=== PATIENT | male | born 1965 | race Caucasian/White ===

== ENCOUNTER 2016-10-19 07:17 | Emergency (ER) | payer OTHER ==
[2016-10-19 07:30] VITALS: BP 107/74
[2016-10-19] MEDS ORDERED: Ondansetron INJ* 2 MG/ML VIAL IV ONE (08:47)
[2016-10-19] MEDS ORDERED: NS 0.9% 1000 ML* 1,000 ML IV ONE (08:47)
[2016-10-19 09:07] LABS: Hematocrit 40 % (42-52); Hemoglobin 13.4 g/dl (14.0-18.0); Mean Corpuscular HGB Conc 34 g/dl (31-36); Mean Corpuscular Hemoglobin 28 pg (27-31); Mean Corpuscular Volume 83 fL (80-94); Mean Platelet Volume 9 um3 (7.4-10.4); Red Blood Count 4.81 10^6/ul (4.0-5.4); Red Cell Distribution Width 14 % (10.5-15); White Blood Count 5.2 10^3/ul (3.5-10.8)
--- NOTE | 2016-10-19 10:16 | RAD ---
INDICATION: Cough and flulike symptoms for a few days. Low-grade fever. Factor V Leiden deficiency. History of head and neck cancer. COMPARISON: June 08, 2016 PET/CT. TECHNIQUE: Dual energy PA and routine lateral views of the chest were obtained. REPORT: Clear lungs and pleural spaces. The heart, pulmonary vasculature, and mediastinal contours are unremarkable. Unremarkable osseous structures and soft tissue contours. IMPRESSION: 1. No evidence for pneumonia. 2. No focal pulmonary lesions or radiographic findings of lymphadenopathy.
[2016-10-19 10:22] LABS: Albumin 4.2 g/dL (3.2-5.2); BUN/Creatinine Ratio 17.2 (8-20); Calcium 9.3 mg/dL (8.6-10.3); EGFR African American 119.5 (>60); EGFR Non-African American 92.9 (>60); Globulin 2.1 g/dL (2-4); Potassium 4.3 mmol/L (3.5-5.0); Total Bilirubin 1.9 mg/dL (0.2-1.0); Total Protein 6.3 g/dL (6.4-8.9)
--- NOTE | 2016-10-19 15:21 | ED ---
I, Oh,Jorge, scribed for Ming Pritchard MD on 10/19/16 at 0847 . Influenza-Like Illness - HPI Summary HPI Summary: This 51 y/o male presents to ED via private vehicle for flu-like symptoms since 4 days ago. Pt also reports productive cough, n/v x1 yesterday, general myalgia , general weakness, dizziness, and low grade fever of 99.9 F at home. Pt currently has feeding tube in place, but reports that pt has not eaten yesterday. He denies any SOB, CP, abd pain, or dysuria. He is not UTD with flu shot this year. PMHx includes throat CA s/p radiology tx on 08/25/2016. He was seen by radiologist oncologist 3 days ago. No chemo or surgery except for feeding tube placement. PSHx includes hernia surgery. Primary care involves Dr. Prado. Pt is nonsmoker, nondrinker. Pt denies any possible sick contact. - History of Current Complaint Chief Complaint: EDFluSymptoms Time Seen by Provider: 10/19/16 07:55 Hx Obtained From: Patient, Family/Epic Ambulatory Analysts - present at bedside Onset/Duration: Gradual Onset, Still Present Associated Signs & Symptoms: Fever, T Max - 99.9 F, Cough, Sore Throat, Vomiting - Allergy/Home Medications Allergies/Adverse Reactions: Allergies Allergy/AdvReac Type Severity Reaction Status Date / Time No Known Allergies Allergy Verified 10/19/16 07:21 PMH/Surg Hx/FS Hx/Imm Hx Endocrine/Hematology History: Denies: Hx Diabetes Cardiovascular History: Reports: Other Cardiovascular Problems/Disorders - FACTOR V LIEDEN, HX OF SUPERFICIAL BLOOD CLOTS IN LEGS, PRIMARILY RIGHT- Denies: Hx Hypertension, Hx Pacemaker/ICD Respiratory History: Reports: Hx Sleep Apnea History: Reports: Hx Kidney Stones - LEFT Denies: Hx Renal Disease Musculoskeletal History: Reports: Hx Arthritis - BILATERAL SHOULDERS, Hx Tendonitis - RIGHT HAND, Other Musculoskeletal History - DDD Sensory History: Reports: Hx Contacts or Glasses - READING GLASSES Denies: Hx Hearing Aid Opthamlomology History: Reports: Hx Contacts or Glasses - READING GLASSES Neurological History: Reports: Hx Nerve Disease, Other Neuro Impairments/ Disorders - NEUROPATHY BILAT FEET Psychiatric History: Denies: Hx Panic Disorder - Cancer History Cancer Type, Location and Year: MALIGNANT NEOPLASM TONSIL - Surgical History Surgery Procedure, Year, and Place: TONSILLECTOMY A CHILD. APPENDECTOMY A CHILD. 2011 ABDOMINAL HERNIA REPAIR WITH MESH, [facility]. 2012 ESWL LEFT KIDNEY STONE, [place]. 10/2015 RIGHT KNEE ARTHROSCOPY WITH PARTIAL MEDIAL MENISECTOMY AND PLICA EXCISION, [place] Hx Anesthesia Reactions: Yes - 2012-AGITATED WITH EXTUBATION - Immunization History Date of Tetanus Vaccine: Unknown Date of Influenza Vaccine: never Infectious Disease History: No Infectious Disease History: Denies: Traveled Outside the [place] in Last 30 Days - Family History Known Family History: Positive: Other - Cancer - Social History Alcohol Use: Occasionally Hx Substance Use: No Substance Use Type: Reports: None Hx Tobacco Use: Yes Smoking Status (MU): Former Smoker Type: Cigarettes Amount Used/How Often: 1-2 PPD, ON AND OFF FOR ABOUT 20 YEARS Length of Time of Smoking/Using Tobacco: 20 YEARS Have You Smoked in the Last Year: No Review of Systems Negative: Fever Negative: Erythema Positive: Sore Throat Negative: Chest Pain Positive: Cough. Negative: Shortness Of Breath Positive: Vomiting, Nausea. Negative: Abdominal Pain, Diarrhea Negative: dysuria, hematuria Positive: Myalgia - general Neurological: Other - positive for dizziness Positive: Weakness - general Negative: Anxious, Depressed All Other Systems Reviewed And Are Negative: Yes Physical Exam - Summary Physical Exam Summary: Constitutional: Well-developed, Well-nourished, Alert. (-) Distressed Skin: Warm, Dry HENT: Normocephalic; Atraumatic, External ear canal patent. TM normal. Left tonsil red and discolored Eyes: Conjunctiva normal Neck: Musculoskeletal ROM normal neck. (-) JVD, (-) Stridor, (-) Tracheal deviation Cardio: Rhythm regular, rate normal, Heart sounds normal; Intact distal pulses; The pedal pulses are 2+ and symmetric. Radial pulses are 2+ and symmetric. (-) Murmur Pulmonary/Chest wall: Effort normal. (-) Respiratory distress, (-) Wheezes, (-) Rales Abd: Soft, (-) Tenderness, (-) Distension, (-) Guarding, (-) Rebound Musculoskeletal: (-) Edema Lymph: (-) Cervical adenopathy Neuro: Alert, Oriented x3 Psych: Mood and affect Normal Triage Information Reviewed: Yes Vital Signs On Initial Exam: Initial Vitals Temp Pulse Resp BP Pulse Ox 97.9 F 97 16 107/74 99 10/19/16 07:21 10/19/16 07:21 10/19/16 07:21 10/19/16 07:21 10/19/16 07:21 Vital Signs Reviewed: Yes Diagnostics - Vital Signs Vital Signs Temp Pulse Resp BP Pulse Ox 10/19/16 07:21 97.9 F 97 16 107/74 99 - Laboratory Result Diagrams: 10/19/16 09:00 10/19/16 09:00 Lab Statement: Any lab studies that have been ordered have been reviewed, and results considered in the medical decision making process. - Radiology CXR Xray Interpretation: No Acute Changes Radiology Interpretation Completed By: Radiologist Re-Evaluation - Re-Evaluation First Eval Re-Evaluation Time: 10:55 Comment: MD in room to update pt on lab results and plan of care. Pt is agreeable to being discharged and outpatient f/u with Dr. Prado. Flu Symptom Course/Dx - Course Assessment/Plan: This 51 y/o male presents to ED for flu-like symptoms with productive cough, low grade fever, and sore throat for 4 days. PMHx is significant for throat CA s/p radiation tx in August 2016. Blood work indicates midly elevated total bilirubin of 1.90. At this point, acute biliary obstruction or surgical abdomen are not suspected with pt's clinical presentation today. Rapid strep and flu swap are indicated negative. Pt will be sent home with outpatient f/u with Dr. Prado. - Diagnoses Provider Diagnoses: Viral illness, Jaundice Discharge - Discharge Plan Condition: Stable Disposition: HOME Prescriptions: Ondansetron ODT TAB* [Zofran Odt TAB*] 4 mg PO Q8H PRN #12 tab.odt PRN Reason: Nausea/Vomiting Patient Education Materials: Ondansetron (By mouth), Viral Syndrome (ED), Jaundice (ED) Referrals: David Daily MD [Primary Care Provider] - 2 Days Juan Manuel Prado MD [Medical Doctor] - 2 Days The documentation as recorded by the Low kemp Soohyun accurately reflects the service I personally performed and the decisions made by , Ming Pritchard MD.
== END 2016-10-19 11:12 | disposition home or self-care (01) ==
LOC: ED 07:17
DX: B34.9 Viral infection, unspecified (principal); R17 Unspecified jaundice; G62.9 Polyneuropathy, unspecified; Z87.891 Personal history of nicotine dependence
CPT/HCPCS: 36415; 71020; 80053; 85027; 87502; 87651; 96360; 96365; 96374; 99282; J2405

== ENCOUNTER 2018-05-25 08:14 | Observation (INO) | payer OTHER ==
[2018-05-25] MEDS ORDERED: Ondansetron INJ* 2 MG/ML VIAL IV ONE (08:29)
[2018-05-25] MEDS ORDERED: Morphine VIAL* 4 MG/ML VIAL (1 ml vial) IV ONE ×2 (08:29→11:39)
--- NOTE | 2018-05-25 08:37 | ED ---
Neck Pain - HPI Summary HPI Summary: This patient is a 52 year old M presenting to [facility] accompanied by his with a chief complaint of progressively worsening 9/10 diffuse neck pain since . He endorses left hand paresthesia, numbness, and weakness. He notes pain radiation to front of head and eyes. He denies PMHx neck problems. He denies injury and chest pain. Rx allopurinol for PMHx gout. Rx gabapentin PRN for PMHx neuropathy of feet. PMHx throat cancer, + factor 5. - History of Current Complaint Chief Complaint: EDNeckComplaint Stated Complaint: NECK/BACK PAIN Time Seen by Provider: 05/25/18 08:22 Hx Obtained From: Patient Onset/Duration Of Injury/Symptoms: Days Mechanism Of Injury: No Known Trauma Timing: Constant Onset/Duration: Gradual Onset, Started days ago, Still Present, Worse Since - gradually Severity Initially: Moderate Severity Currently: Severe Pain Intensity: 9 Pain Scale Used: 0-10 Numeric Location: Diffuse, Radiates To: - head and eyes Aggravating Factors: Movement Alleviating Factors: Nothing Associated Signs & Symptoms: Positive: Weakness - left arm, Headache, Paresthesia. Negative: Fever Related History: Other - throat CA - Allergies/Home Medications Allergies/Adverse Reactions: Allergies Allergy/AdvReac Type Severity Reaction Status Date / Time No Known Allergies Allergy Verified 05/25/18 09:16 Home Medications: Home Medications Levothyroxine Sodium 75 mcg PO DAILY 05/25/18 [History Confirmed 05/25/18] PMH/Surg Hx/FS Hx/Imm Hx Endocrine/Hematology History: Reports: Hx Blood Disorders - + factor V Denies: Hx Diabetes Cardiovascular History: Reports: Other Cardiovascular Problems/Disorders - FACTOR V LIEDEN, HX OF SUPERFICIAL BLOOD CLOTS IN LEGS, PRIMARILY RIGHT- Denies: Hx Hypertension, Hx Pacemaker/ICD Respiratory History: Reports: Hx Sleep Apnea History: Reports: Hx Kidney Stones - LEFT Denies: Hx Renal Disease Musculoskeletal History: Reports: Hx Arthritis - BILATERAL SHOULDERS, Hx Tendonitis - RIGHT HAND, Other Musculoskeletal History - DDD Sensory History: Reports: Hx Contacts or Glasses - READING GLASSES Denies: Hx Deafness, Hx Hearing Aid Opthamlomology History: Reports: Hx Contacts or Glasses - READING GLASSES EENT History: Denies: Hx Deafness Neurological History: Reports: Hx Nerve Disease, Other Neuro Impairments/ Disorders - NEUROPATHY BILAT FEET Psychiatric History: Denies: Hx Panic Disorder, Hx Schizophrenia - Cancer History Cancer Type, Location and Year: MALIGNANT NEOPLASM TONSIL - Surgical History Surgery Procedure, Year, and Place: TONSILLECTOMY A CHILD. APPENDECTOMY A CHILD. 2011 ABDOMINAL HERNIA REPAIR WITH MESH, [facility]. 2012 ESWL LEFT KIDNEY STONE, [facility]. 10/2015 RIGHT KNEE ARTHROSCOPY WITH PARTIAL MEDIAL MENISECTOMY AND PLICA EXCISION, [facility] Hx Anesthesia Reactions: Yes - 2012-AGITATED WITH EXTUBATION - Immunization History Date of Tetanus Vaccine: Unknown Date of Influenza Vaccine: never Infectious Disease History: No Infectious Disease History: Denies: Traveled Outside the [place] in Last 30 Days - Family History Known Family History: Positive: Other - Cancer - Social History Occupation: Employed Full-time Lives: With Family Alcohol Use: Occasionally Hx Substance Use: No Substance Use Type: Reports: None Hx Tobacco Use: Yes Smoking Status (MU): Former Smoker Type: Cigarettes Amount Used/How Often: 1-2 PPD, ON AND OFF FOR ABOUT 20 YEARS Length of Time of Smoking/Using Tobacco: 20 YEARS Have You Smoked in the Last Year: No Review of Systems Negative: Fever Negative: Chest Pain Positive: no symptoms reported Positive: Arthralgia - neck, Myalgia - neck, Decreased ROM Positive: Headache - radiated from neck, to eyes and head, Weakness - left arm/ hand, Paresthesia - left arm/hand, Numbness - left arm/hand All Other Systems Reviewed And Are Negative: Yes Physical Exam - Summary Physical Exam Summary: General: well-appearing, moderate pain distress Skin: warm, color reflects adequate perfusion, dry Head: normal Eyes: EOMI, LEX ENT: normal Neck: supple, nontender Respiratory: CTA, breath sounds present Cardiovascular: RRR, good pulses Abdomen: soft, nontender Bowel: present Musculoskeletal: Tender in dorsal neck, pain worse with left arm movement. Good strength bilaterally. Neurological: sensory/motor intact, A&O x3 Psychological: affect/mood appropriate Triage Information Reviewed: Yes Vital Signs On Initial Exam: Initial Vitals Temp Pulse Resp BP Pulse Ox 97.8 F 64 18 139/93 99 05/25/18 08:17 05/25/18 08:17 05/25/18 08:17 05/25/18 08:17 05/25/18 08:17 Vital Signs Reviewed: Yes Diagnostics - Vital Signs Vital Signs Temp Pulse Resp BP Pulse Ox 08/23/18 08:17 97.8 F 64 18 139/93 99 - Laboratory Result Diagrams: 05/25/18 09:19 05/25/18 09:19 Lab Statement: Any lab studies that have been ordered have been reviewed, and results considered in the medical decision making process. - CT Brain CT Interpretation: No Acute Changes CT Interpretation Completed By: Radiologist - Negative non-contrast examination. Dr. Lazaro has reviewed this report. C-Spine CT Interpretation: No Acute Changes CT Interpretation Completed By: Radiologist - Mild DDD, otherwise unremarkabel CT of C-spine. Dr. Lazaro has reviewed this report. CTA head CT Interpretation: Positive (See Comments) CT Interpretation Completed By: Radiologist - 1. RIGHT VERTEBRAL ARTERY DISSECTION. THIS RESULTS IN OCCLUSION OF THE V1 SEGMENT OF NARROWING OF THE V2 SEGMENT WITHOUT APPRECIABLE PSEUDOANEURYSM. 2. NO INTERNAL CAROTID ARTERY STENOSIS BY NASCET CRITERIA. 3. NO ANEURYSM, VASCULAR MALFORMATION, OCCLUSION, OR STENOSIS OF THE VISUALIZED INTRACRANIAL CIRCULATION. Dr. Lazaro has reviewed this report. Neck Course/Dx - Course Course Of Treatment: right sided. Dr Salvador, neurology, saw the patient in the ED. Admit Hospitalist. - Diagnoses Provider Diagnoses: Dissection, vertebral artery - Physician Notifications Discussed Care Of Patient With: Marlon Salvador Time Discussed With Above Provider: 11:17 Instructed by Provider To: Other - Will see pt in ED. Discharge - Sign-Out/Discharge Documenting (check all that apply): Patient Departure - admit - Discharge Plan Condition: Stable Disposition: ADMITTED TO [facility] - Billing Disposition and Condition Condition: STABLE Disposition: Admitted to [facility] - Attestation Statements Document Initiated by Hemanthibnoel: Yes Documenting Scribe: Jose Kumar Provider For Whom Raúl is Documenting (Include Credential): Dr. Brandon Lazaro MD Scribe Attestation: Jose Park scribed for Dr. Brandon Lazaro MD on 05/25/18 at 1521. Scribe Documentation Reviewed: Yes Provider Attestation: The documentation as recorded by the Jose kemp accurately reflects the service I personally performed and the decisions made by me, Dr. Brandon Lazaro MD Consult Consult: 1212 Dr. Salvador: recommends 325 ASA, no blood thinners necessary. Recommends controlling the pain, and gabapentin for nerve pain. Recommends admitting to the hospitalist. 1214 Dr. Swartz: Accepts admission
[2018-05-25] MEDS ORDERED: Morphine INJ* 2 MG/ML 1 ML SYRINGE (TWO MG - NEW SYRINGE VERSION) ONE (09:09)
[2018-05-25] MEDS ORDERED: NS 0.9% 1000 ML*IV.FLUID IV ONE (09:11)
[2018-05-25 09:33] LABS: ABS Basophils 0.1 10^3/ul (0-0.2); ABS Eosinophils 0.1 10^3/ul (0-0.6); ABS Lymphocytes 0.5 10^3/ul (1.0-4.8); ABS Monocytes 0.4 10^3/ul (0-0.8); ABS Neutrophils 5.6 10^3/ul (1.5-7.7); ABS Nucleated RBC 0 10^3/ul; Eosinophil % 1.4 % (0-6); Hematocrit 42 % (42-52); Hemoglobin 14.6 g/dl (14.0-18.0); Lymphocyte % 7.3 % (25-47); Mean Corpuscular HGB Conc 35 g/dl (31-36); Mean Corpuscular Hemoglobin 30 pg (27-31); Mean Corpuscular Volume 85 fL (80-94); Nucleated Red Blood Cells % 0.1; Platelet Count 124 10^3/ul (150-450); Red Blood Count 4.86 10^6/ul (4.00-5.40); Red Cell Distribution Width 14 % (10.5-15); White Blood Count 6.6 10^3/ul (3.5-10.8)
[2018-05-25 09:43] LABS: INR 0.96 (0.77-1.02)
[2018-05-25 09:54] LABS: EGFR Non-African American 99.1 (>60)
[2018-05-25] MEDS ORDERED: Iohexol 350* (CONTRAST) 500 ML MDV IV ONE (09:59)
--- NOTE | 2018-05-25 10:40 | RAD ---
INDICATION: Headaches. Tonsillar carcinoma COMPARISON: None TECHNIQUE: Noncontrast axial source images were acquired from the skull base to the vertex. FINDINGS: Ventricles/sulci: The ventricles and cisterns are normal in size and configuration for age. Brain parenchyma: There is no focal parenchymal finding, evidence of intracranial mass, or intracranial mass effect. Intracranial hemorrhage:None. Extra-axial spaces: There are no abnormal extra axial fluid collections or evidence of extra-axial mass. Calvarium: There is no calvarial fracture or other calvarial abnormality. Scalp: There is no evidence of scalp or extracalvarial soft tissue abnormality. Paranasal sinuses/mastoid: The paranasal sinuses and mastoid air cells are clear. Other: None. IMPRESSION: NEGATIVE NONCONTRAST EXAMINATION
--- NOTE | 2018-05-25 10:43 | RAD ---
HISTORY: neck pain,left arm pain,rt head pain COMPARISONS: None TECHNIQUE: Multiple contiguous axial CT scans were obtained of the cervical spine without intravenous contrast, with coronal and sagittal multiplanar reformations. FINDINGS: BRAIN: The visualized brain is unremarkable CENTRAL CANAL: Evaluation of the central canal is limited on CT technique; however, there is no obvious canalicular mass or epidural hemorrhage. ALIGNMENT: The alignment is normal, without subluxation or dislocation. VERTEBRAL BODIES: The odontoid process is intact. The atlantoaxial intervals are symmetric. The vertebral bodies are normal in attenuation, without fracture. JOINTS: There is no subluxation or dislocation. MUSCULATURE: Unremarkable INTERVERTEBRAL DISCS: There is mild diffuse loss of intervertebral disc height. AXIAL IMAGES: C2-C3: There is no osseous neural foraminal narrowing or central canal stenosis. C3-C4: There is no osseous neural foraminal narrowing or central canal stenosis. C4-C5: There is no osseous neural foraminal narrowing or central canal stenosis. C5-C6: There is no osseous neural foraminal narrowing or central canal stenosis. C6-C7: There is no osseous neural foraminal narrowing or central canal stenosis. C7-T1: There is no osseous neural foraminal narrowing or central canal stenosis. SOFT TISSUES: The visualized soft tissues of the neck are unremarkable. The prevertebral fat stripe is preserved. OTHER: None. IMPRESSION: MILD DEGENERATIVE DISC DISEASE. OTHERWISE UNREMARKABLE CT OF THE CERVICAL SPINE.
--- NOTE | 2018-05-25 10:48 | RAD ---
HISTORY: rt GRAYSON/NECK PAIN/lt arm pain,factor 5 positive COMPARISONS: None TECHNIQUE: Multiple contiguous axial CT scans were obtained of the head and neck after the administration of nonionic intravenous contrast timed to the systemic arterial phase of contrast enhancement. Coronal and sagittal multiplanar reformations are submitted for review. Multiple 3-D maximum intensity projection reconstructions are also submitted for review. FINDINGS: CTA NECK: AORTIC ARCH: There is a normal three-vessel branching pattern of the aortic arch. There is no ostial or proximal stenosis of the cephalic great vessels. RIGHT VERTEBRAL ARTERY: There is lack of contrast opacification of the V1 segment of the right vertebral artery with fusiform narrowing of the V2 segment with reconstitution distally. LEFT VERTEBRAL ARTERY: The left vertebral artery is patent along its course, without stenosis. DOMINANCE: The left vertebral artery is dominant. RIGHT COMMON CAROTID ARTERY: The right common carotid artery is patent. The right carotid bifurcation occurs at C3-C4 RIGHT INTERNAL CAROTID ARTERY: There is no right internal carotid artery stenosis by NASCET criteria. Right internal carotid artery is tortuous. RIGHT EXTERNAL CAROTID ARTERY: The right external carotid artery is unremarkable. LEFT COMMON CAROTID ARTERY: The left common carotid artery is patent. The left carotid bifurcation occurs at C4-C5 LEFT INTERNAL CAROTID ARTERY: There is no left internal carotid artery stenosis by NASCET criteria. LEFT EXTERNAL CAROTID ARTERY: The left external carotid artery is unremarkable. VENOUS CIRCULATION: The venous system is unremarkable. SALIVARY GLANDS: The parotid glands, submandibular glands, sublingual glands are normal. NASAL CAVITY/NASOPHARYNX: The nasal cavity and nasopharynx are normal. ORAL CAVITY/OROPHARYNX: The oral cavity is obscured by streak artifact from dental amalgam. The visualized oral cavity and oropharynx are unremarkable. LARYNGEAL APPARATUS/HYPOPHARYNX: The laryngeal apparatus and hypopharynx are normal. UPPER AIRWAY/UPPER ESOPHAGUS: The visualized upper airway and esophagus are normal. LUNG APICES: The lung apices are clear. THYROID GLAND: The thyroid gland is small. LYMPH NODES: There is no lymphadenopathy by size criteria. BONES AND SOFT TISSUES: No bone or soft tissue abnormalities are noted. CTA HEAD: INTRACRANIAL CIRCULATION: There is no aneurysm, vascular malformation, occlusion, or stenosis of the visualized intracranial circulation. The anterior communicating artery complex is clear. Bilateral posterior communicating arteries are identified. VENOUS CIRCULATION: The venous system is unremarkable. PERFUSION: There is no obvious parenchymal perfusion deficit. HEMORRHAGE/INFARCT: There is no hemorrhage or acute infarct. MASSES/SHIFT: There is no mass or shift. EXTRA-AXIAL SPACES: There are no extra-axial fluid collections. SULCI AND VENTRICLES: The sulci and ventricles are normal in size and position for the patient's stated age. CEREBRUM: There are no focal parenchymal abnormalities. BRAINSTEM: There are no focal parenchymal abnormalities. CEREBELLUM: There are no focal parenchymal abnormalities. PARANASAL SINUSES: There is a mucous retention cyst of the right maxillary sinus. ORBITS: The orbits are unremarkable. BONES AND SOFT TISSUE: No bone or soft tissue abnormalities are noted. OTHER: There is no abnormal enhancement. IMPRESSION: 1. RIGHT VERTEBRAL ARTERY DISSECTION. THIS RESULTS IN OCCLUSION OF THE V1 SEGMENT OF NARROWING OF THE V2 SEGMENT WITHOUT APPRECIABLE PSEUDOANEURYSM. 2. NO INTERNAL CAROTID ARTERY STENOSIS BY NASCET CRITERIA. 3. NO ANEURYSM, VASCULAR MALFORMATION, OCCLUSION, OR STENOSIS OF THE VISUALIZED INTRACRANIAL CIRCULATION. PRELIMINARY FINDINGS WERE DISCUSSED WITH DR. OSORIO AT APPROXIMATELY 10:44 AM ON MAY 25, 2018. . CPT II Codes: 3100F
[2018-05-25] MEDS ORDERED: Morphine INJ* 2 MG/ML 1 ML SYRINGE (TWO MG - NEW SYRINGE VERSION) IV ONE (11:42)
[2018-05-25] MEDS ORDERED: oxyCODONE/Acetamin 5/325 MG* TAB PO PRN (12:53)
[2018-05-25] MEDS ORDERED: Ondansetron INJ* 2 MG/ML VIAL IV PRN (12:54)
[2018-05-25] MEDS ORDERED: Aspirin 81 mg CHEW TAB* 81 MG TAB.CHEW ONE ×2 (12:54→12:56)
[2018-05-25] MEDS ORDERED: Enoxaparin(*) 40 MG/0.4 ML SYR SUBCUT SCH (13:00)
[2018-05-25] MEDS ORDERED: Aspirin 81 mg CHEW TAB* 81 MG TAB.CHEW PO SCH ×2 (13:00→13:11)
[2018-05-25] MEDS: NS 0.9% w/ 20 Meq KCL 1000 ML* 1,000 ML IV SCH ×2 (15:15→22:02)
--- NOTE | 2018-05-25 15:22 | RAD ---
HISTORY: Evaluate for right thalamic or pontine infarction COMPARISONS: Head CT dated May 25, 2018, CT dated May 25, 2018 TECHNIQUE: The following sequences were obtained of the head: Sagittal T1-weighted images, axial T2-weighted images, axial FLAIR images, axial susceptibility weighted images, axial T1-weighted images. Additionally, axial diffusion-weighted images were obtained with calculated apparent diffusion coefficients. FINDINGS: HEMORRHAGE/INFARCT: There is no hemorrhage or acute infarct. MASSES/SHIFT: There is no mass or shift. EXTRA-AXIAL SPACES/MENINGES: There are no extra-axial fluid collections. SULCI AND VENTRICLES: The sulci and ventricles are normal in size and position for the patient's stated age. CEREBRUM: There are no focal parenchymal abnormalities. BRAINSTEM: There are no focal parenchymal abnormalities. CEREBELLUM: There are no focal parenchymal abnormalities. The cerebellar tonsils are normal in size and position. SELLA: The sella is normal. PINEAL: The pineal region is clear. CP ANGLE/TEMPORAL BONES: The labyrinthine structures are grossly normal. VESSELS: Normal flow-voids are noted within the visualized vertebral vasculature. DIFFUSION ABNORMALITIES: There are no diffusion abnormalities. PARANASAL SINUSES/MASTOIDS: There is a mucous retention cyst of the right maxillary sinus. ORBITS: The orbits are unremarkable. BONES AND SOFT TISSUE: No bone or soft tissue abnormalities are noted. OTHER: None IMPRESSION: NORMAL BRAIN. THERE IS NO RESTRICTED DIFFUSION TO SUGGEST ACUTE INFARCT.
[2018-05-25] MEDS: Morphine INJ* 2 MG/ML 1 ML SYRINGE (TWO MG - NEW SYRINGE VERSION) IV PRN ×2 (17:00→23:41)
--- NOTE | 2018-05-25 17:21 | HP ---
CC: Dr. Brandy Elizalde * HISTORY AND PHYSICAL: DATE OF ADMISSION: 05/25/18. PRIMARY CARE PROVIDER: Dr. Brandy Elizalde. CHIEF COMPLAINT: Pain in neck. HISTORY OF PRESENT ILLNESS: Mr. Torres is a 52-year-old male, who has a history of throat cancer diagnosed approximately 2 years ago, status post radiation therapy, recurrent kidney stones, gout, hypothyroidism, and lower extremity neuropathy who presents to the emergency room with complaints of sudden onset of severe right- sided neck pain. The patient states that this past Tuesday evening, he golfed like he typically does. He had no issues that evening. On the very mop maker of Tuesday, approximately 4 a.m., he was awakened from sleep with severe left shoulder blade pain. The patient's was awakened by her calling out for help. She got him situated in a recliner and placed a TENS unit on his shoulder blade. Ultimately, he was able to be settled down and sleep the rest of the night. He states that this morning at approximately 7 :30 a.m., he developed sudden onset of very severe right posterior neck pain. He states the pain radiates up across the entire head down over the forehead into the eye. He describes this is very painful. He initially told the neurologist that he had some double vision, but denied this to me. He does state when he develops the severe pain in his neck this morning, he also developed some numbness and tingling in the left hand. He states there is still mild amount of numbness and tingling there now. He does admit to lifting a 30 foot ladder into the back of a truck this morning. He does admit to mild headache with this. He felt as if his right arm felt heavy. After reviewing with the neurologist economics professor today, it seems as though the patient gave both myself and the neurologist a little bit of a different story. The patient's had another variation. PAST MEDICAL HISTORY: 1. History of throat cancer, status post radiation therapy. 2. Neuropathy of the bilateral feet. 3. Recurrent kidney stones. 4. Gout. 5. Hypothyroidism. 6. Heterozygous for factor V Leiden deficiency. PAST SURGICAL HISTORY: 1. Appendectomy. 2. Tonsillectomy. 3. Right knee arthroscopic surgery. 4. Lithotripsy. 5. PEG tube placement. 6. Hernia repair. MEDICATIONS: 1. Levothyroxine 75 mcg p.o. daily. 2. Gabapentin 300 mg p.o. t.i.d. p.r.n. pain (the patient only takes 300 mg once a day). 3. Allopurinol 300 mg p.o. q.h.s. ALLERGIES: No known drug allergies. FAMILY HISTORY: Mom in her 60s of brain cancer. Dad is living, he is 81, he has a history of DVT and dementia. SOCIAL HISTORY: The patient is a former smoker, he quit approximately 10 years ago. He smoked 1 to 2 packs a day for approximately 5 years. He used chewing tobacco following that, but does not use this any longer. He admits to drinking several alcoholic beverages per week and averages likely 18 beers weekly. 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 He is . He has no children. He indicates that his , Beverly is his healthcare proxy. REVIEW OF SYSTEMS: A complete 11-system review of systems was obtained. Pertinent positives and negatives are as per HPI and otherwise negative. PHYSICAL EXAMINATION GENERAL: The patient is a well-developed, middle-aged male seen lying in the stretcher, in no acute distress. VITAL SIGNS: Blood pressure 133/78, pulse 68, respirations 22, temp 97.8, O2 sat 97% on room air. HEENT: Pupils are equal and round. Extraocular muscles are intact. Oropharynx is clear. Oral mucosa is moist. NECK: There is no submandibular, cervical, or supraclavicular adenopathy. Thyroid is not enlarged. No thyroid nodules are noted. PULMONARY: Lungs are clear to auscultation bilaterally. CARDIAC: Normal S1, S2. Regular rate and rhythm. I do not appreciate any murmurs. There is no lower extremity edema. ABDOMEN: Bowel sounds present. Abdomen is soft, nontender, and nondistended. MUSCULOSKELETAL: There is no cyanosis or clubbing of the digits. There is full active range of motion of all 4 extremities. NEURO: Cranial nerves II through XII are grossly intact. Sensation is intact to light touch throughout. Strength is 5/5 and symmetric in both upper and lower extremities bilaterally. PSYCH: The patient is alert. He is oriented x3. Affect appears appropriate. SKIN: Warm and dry. There are no rashes. DIAGNOSTIC STUDIES/LAB DATA: WBC 6.6, hemoglobin 14.6, hematocrit 42, platelets 124. INR 0.96. Sodium 139, potassium 4.5, chloride 108, CO2 of 24, BUN 10, creatinine 0.82, glucose 99, calcium 8.9. Bilirubin 0.6, AST 14, ALT 12 , alk phos 54. Albumin 3.8. Triglyceride level 341. Total cholesterol 163. LDL 62, HDL 33, vitamin B12 333. CT of the brain negative, non-contrast examination. CT of the cervical spine, mild degenerative disk disease otherwise unremarkable CT of the cervical spine. CTA of the head reveals right vertebral artery dissection. This results in occlusion of the V1 segment and narrowing of the V2 segment without appreciable pseudoaneurysm. There is no internal carotid artery stenosis. No aneurysm, vascular malformation, occlusion or stenosis of the visualized intracranial circulation. ASSESSMENT AND PLAN: Mr. Torres is a 52-year-old male with a history of throat cancer, status post radiation therapy, hypothyroidism, and gout, who presents to the emergency room with complaints of sudden onset of severe neck. He is identified to have a right vertebral artery dissection. 1. Right vertebral artery dissection. At this point, it does not clear why this developed, however, the patient did receive radiation therapy to the neck. Perhaps there was some damage done to the vertebral artery related to this. The patient did golf this past Tuesday and lifted a heavy object on the morning of admission. At this point, management for the vertebral artery dissection is going to be with aspirin 325 mg daily. The patient did develop numbness and tingling of the left hand, which is still present at this time. Because of this there is a concern that the patient may have had a small stroke. An MRI of the brain has been ordered. The patient has been seen in consultation by Dr. Salvador, who will continue to follow along. Dr. Salvador did speak with neurovascular surgeon at [facility] and it was not felt that he required transfer at this time. The patient will have neuro checks overnight. 2. Hypothyroidism. The patient will continue on his usual dose of Synthroid. 3. Gout. We will continue allopurinol. 4. Lower extremity neuropathy. This is likely a secondary to the patient's alcohol use. It seems as though he drinks approximately 18 beers per week, but perhaps more. The patient will continue on gabapentin, though this will be changed to 300 mg twice daily. 5. DVT prophylaxis: According to the Adult Thrombosis Prophylaxis Risk Factor Assessment Guide, the patient has a total risk factor score of 5 making him high risk. Lovenox 40 mg subcutaneous daily will be utilized as DVT prophylaxis. 6. Code status is full. TIME SPENT: Sixty-five minutes were spent admitting this patient. [id number]/CPS #: [id number] MTDD
[2018-05-25] MEDS: Gabapentin CAP(*) 300 MG PO SCH (20:28)
[2018-05-25] MEDS ORDERED: Allopurinol TAB* 300 MG PO SCH (21:00)
--- NOTE | 2018-05-25 21:02 | CONS ---
NEUROLOGY CONSULTATION NOTE: DATE OF SERVICE: 05/25/18 REASON FOR CONSULT: Neurology was consulted to evaluate for abnormal CTA. CHIEF COMPLAINT: Back and neck pain as well as transient double vision and left - handed numbness. HISTORY OF PRESENT ILLNESS: Mr. Brandon Torres is a 52-year-old right-handed man with history of throat cancer, status post radiation therapy, 6 weeks of 6- treatments, total of 36-treatments that ended on 08/25/16 who presented with sudden onset of right-sided neck pain. The patient reported some shoulder pain Tuesday, eventually progressed to pain in the low back, shoulder, as well as the neck. This morning, the patient had a transient symptom of binocular vertical diplopia that lasted for approximately 45 minutes followed by tingling sensation of the left arm, mostly involving the left hand that also lasted for about 1 hour. In regards to the neck pain, the patient describes a dull-like sensation that is graded as 8/10 in the neck region. It is again sudden onset that woke him up on Tuesday at 4 a.m. The patient is aspirin naive. He has no history of stroke or seizures.The patient presented to the ED and had a CT head that showed no acute intracranial abnormalities. I personally reviewed the study. The patient then had a CTA head and neck that showed a right vertebral artery dissection with occlusion of the V1 segment and severely stenosis of the V2 segment. The patient stated that he played golf Tuesday afternoon. He also reported lifting a heavy object this morning. The patient is aspirin naive. He has no history of stroke or seizures. The patient complains of chronic numbness and burning sensation in the distal lower extremity. He does have history of alcohol use and averages 12 to 18 packs of 12- ounce beer a week since he was 16 to 17 years of age. The patient did not have any motor vehicle accident, trauma to the neck, or any recent chiropractic manipulation. PAST MEDICAL HISTORY: Hypothyroidism, factor V Leiden gene mutation heterozygous, superficial thrombophlebitis mostly involving the lower extremity , gout, kidney stones. PAST SURGICAL HISTORY: No known surgical history. 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 MEDICATIONS: 1. Gabapentin. 2. Synthroid. 3. Allopurinol. ALLERGIES: No known drug allergies. FAMILY HISTORY: Father has factor V with recurrent DVTs and PEs. 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 He denied tobacco use. He does consume alcohol as mentioned in the HPI. He is and has no children. He lives with his . REVIEW OF SYSTEMS: A 14-point review of systems was obtained and otherwise negative except for as mentioned in the HPI. In addition, the patient denied any current double vision, headaches, focal weakness, or paresthesias. PHYSICAL EXAM: Vitals: Temperature of 97.8, heart rate of 65, respiratory rate of 16, oxygen saturation of 98%, and blood pressure of 128/81. General: Well- nourished, well-developed man, in no acute distress, resting comfortably at bedside next to his spouse. Head is atraumatic, normocephalic. Eyes: Conjunctivae/corneas were clear. Lungs: Clear to auscultation bilaterally, nonlabored breathing. Cardiovascular: Regular rate and rhythm. Normal S1, S2. Extremities: Normal range of motion with no cyanosis. Skin: No skin lesions or laceration. Psych: Affect is broad and normal mood. Easy to establish rapport. Neurological Examination: Mental Status: Awake, alert, oriented to person, place, time, general circumstances. Speech and language including expression, naming, repetition, and comprehension were assessed and all found to be normal. Cranial Nerves: Normal to confrontation bilaterally. Pupil mid range and reactive to light and normal consensual response. Extraocular muscles are intact. There is no ptosis or conjugate/asymmetrical nystagmus. Sensation is intact in the forehead, cheeks, and jaw region bilaterally. No facial asymmetry. Able to hear throughout the history process. Symmetrical palatal elevation. Normal strength against shoulder resistance. Tongue is symmetrical and midline with no atrophy or fasciculation. Motor: No abnormal movements. No pronator drift. Normal bulk and tone throughout. No fasciculation. Neck extension is 5. Shoulder range of motion is full. Shoulder abduction 5/5. Elbow extension and flexion 5/5. Wrist flexion and extension 5/5. Finger abduction 5/5. Hip flexion 5/5. Knee flexion, extension 5/5. Ankle dorsiflexion and plantarflexion 5/5. Great toe extension 4/4. Reflexes (right/left): Brachioradialis 2/3, biceps 2/3, triceps 2 /3, patella 2/3, ankle 0/0, plantar flexor/flexor. Sensation is intact to light and pinprick throughout. He has decreased vibratory sensation at the great toe measuring 4 seconds on the right and 5 seconds on the left. Proprioception is intact. Coordination: Normal [id number], but there is decreased rapid alternating movement on the left upper extremity. Gait was not assessed. LABORATORY DATA: WBC 6.6, hemoglobin 14.6, hematocrit 42, platelets of 124. Sodium 139, potassium 4.5, chloride 108, creatinine 0.82. AST 14, ALT 12. ASSESSMENT: Mr. Brandon Torres is a 52-year-old man who presents with right vertebral artery dissection involving the V1 and V2 segments. This is most likely related to spontaneous vertebral artery dissection. Risk factors may include the radiation therapy that he had 2 years ago may have weakened the arterial valves involving the right vertebral artery. Another possibility is that the patient went out golfing on Tuesday night but was not swinging out of the ordinary. His current NIH stroke scale is 0. I discussed this case with Dr. Asael Ashraf, neurovascular neurologist from [facility]. There is no current indication for anticoagulation therapy given the CADISS trial. Therefore, we have agreed to start the patient on aspirin 325 chewable as the patient has difficulty swallowing pills daily. I have ordered an MRI of the brain to evaluate for any stroke. I suspect the patient may have a small artery-to- artery embolic stroke involving the right pontine region or the right thalamus. He was not a candidate for IV t-PA or mechanical thrombectomy given he presented outside the therapeutic window. There is no indication for cerebral angiogram since the CTA is showing the dissection. Please obtain a lipid panel , and if there is evidence of stroke, we would start him high intensity statin therapy. He will need a repeat CTA of the head and neck in 3 months. The patient is an established patient at the [facility] and he can be followed up by Dr. Sonia Hinds who sees him for neuropathy. 2. Factor V Leiden heterozygous - I do not think there is an association between factor V and the patient's vertebral artery dissection. Since he is not homozygous, there is no indication for anticoagulation therapy. 3. 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 I also ordered vitamin B12 level to be checked. 4. Pain related to the vertebral artery dissection - defer pain management to the prior team. He seems to be responding well to morphine. Switch to IV morphine to p.o. oxycodone. Please admit to the hospitalist service for close monitoring. Keep the blood pressures normotensive. The patient does not need PT or OT evaluation since he has no significant deficits. VESSEL TRAFFIC OFFICER evaluation is worthy given that we suspect a posterior infarction. However, please do a bedside swallow evaluation. If he passes, advance his diet. DVT prophylaxis with either heparin or enoxaparin. Do not place a urinary catheter unless there is evidence of urinary retention. I anticipate given his low NIH stroke scale, he should have hopefully have a full recovery. TIME SPENT: I spent a total of 75 minutes and greater than 50% was spent directly reviewing the medical chart, obtaining history, examining the patient, education and counseling, discussing the treatment plan and prognosis. [id number]/CPS #: [id number] JAN
[2018-05-26] MEDS: NS 0.9% w/ 20 Meq KCL 1000 ML* 1,000 ML IV SCH (04:33)
[2018-05-26] MEDS: Gabapentin CAP(*) 300 MG PO SCH (09:58)
[2018-05-26 11:25] VITALS: BP 104/58
--- NOTE | 2018-05-27 00:45 | DS ---
CC: Dr. Brandy Elizalde; Dr. Sonia Hinds DISCHARGE SUMMARY: DATE OF ADMISSION: 05/25/18 DATE OF DISCHARGE: 05/26/18 PRIMARY CARE PROVIDER: Dr. Brandy Elizalde. NEUROLOGIST: Dr. Sonia Hinds. DISCHARGE DIAGNOSIS: Right vertebral artery dissection. SECONDARY DIAGNOSES: 1. History of throat cancer, status post radiation therapy. 2. Bilateral feet neuropathy. 3. Nephrolithiasis. 4. Gout. 5. Hypothyroidism. 6. Heterozygous Factor V Leiden deficiency. 7. Status post appendectomy. 8. Status post tonsillectomy. 9. Status post right knee arthroscopic surgery. 10. Lithotripsy. 11. Status post PEG tube placement. 12. Status post hernia repair. MEDICATION LIST: 1. Levothyroxine 75 mcg p.o. daily. 2. Gabapentin 200 mg p.o. b.i.d. 3. Allopurinol 300 mg p.o. at bedtime. New medications: 1. Aspirin 81 mg 4 tablets chewed daily. 2. Oxycodone/acetaminophen 5/325 mg 1 tablet p.o. q.6 hours p.r.n. severe pain. HOSPITAL COURSE: Mr. Torres is a 52-year-old male with a past medical history as stated above who pre sented to the emergency room with complaints of neck pain. Earlier this week, the patient had golfed and 2 days prior to admission, he also had lifted a heavy object. He woke up with this neck pain and this was followed by diplopia and left hand paresthesias. For more details about his presentation, I refer you to his history and physical. In the emergency room, the patient had a CT of the brain that was negative, a CT of the cervical spin e that showed mild degenerative disk disease, and a CTA of the head and neck that showed right verteb ral artery dissection resulting in occlusion of the V1 segment and narrowing of the V2 segment withou t appreciable pseudoaneurysm. The patient was admitted for further management and he was seen in consultation by Neurology (Dr. Felicita mcdonald). His assessment was that Mr. Torres is a 52-year-old male who presented with right vertebral laura ry dissection involving the V1 and V2 segments. This is most likely related spontaneous vertebral art kathleen dissection. The risk factors may include radiation therapy that he had 3 years ago that may have weakened the arterial vessel. Another possibility is the patient went on golfing prior to the onset of the symptoms and may have developed dissection after golfing. At the time of evaluation, the celeste ent's NIH stroke scale was 0 and the case was discussed with Dr. Asael Ashraf neurovascular neurolog ist from [facility]. As per Dr. Salvador's note, there was no current indication for anticoagulation thera py given the CADISS trial. The recommendation was to start aspirin 325 mg chewable as the patient quiroz s difficulty swallowing pills. An MRI of the brain was ordered to evaluate for stroke. Dr. Salvador lepe spected that the patient could have very small artery to artery embolic stroke involving the right po ntine region or the right thalamus. He was felt not to be a candidate for IV t-PA or mechanical thro mbectomy given he presented outside the therapeutic window. Dr. Salvador also did not think there was an association between factor V and his presentation and since the patient is not homozygous, there was no indication for anticoagulation therapy. 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 Salvador increased his gabapentin to 300 mg twice a day and v itamin B12 level was 333. MRI of the brain without contrast showed a normal brain with no restricted diffusion to suggest an ac ramana infarct. The patient was seen in followup by Neurology. At this point he had resolution of his diplopia and o f his hand paresthesias. He denied chest pain, palpitation, or shortness of breath. He still has so me mild neck pain. The case was once again discussed with Dr. Salvador and he felt that the patient was stable for discharg e on aspirin to follow up with Dr. Hinds in 3 to 4 weeks. Please note that the patient's LDL was on ly 62, so decision was made not to start his statin. The patient was advised to avoid excessive physical exertion such that because he works at [employer] on and plan is to have a repeat scan done in 3 months to make sure his dissection is healed. The pat ient was advised that physical exertion also includes playing golf. PHYSICAL EXAMINATION: Vital Signs: Temperature 98.0, heart rate 66, respiratory rate 14, oxygen sat uration 96% on room air, blood pressure is 104/58. General: The patient is pleasant, middle-aged gen tleman, sitting up in the chair, in no acute distress. HEENT: Pupils are equal. Face is symmetric and moist mucous membranes. CVS: S1 and S2. Regular rate and rhythm. Chest: Breath sounds bilate rally with no added sounds. Neuro: He is alert and oriented x3. Able to move all 4 extremities. P ower is equal bilaterally. Cranial nerves II through XII are grossly intact. Neck: The patient has minimal swelling to the left anterior aspect of his neck, likely residual from his radiation therapy . DIET: Heart-healthy diet. ACTIVITIES: The patient is advised to avoid excessive physical exertion as above. DISPOSITION: To home. STATUS WHILE IN THE HOSPITAL: Observation. Please keep in mind this is a summarized version of this patient's hospital stay. If you need more in formation, please feel free to call me at [phone] or please obtain the full medical record. TIME SPENT: Approximately 45 minutes were spent to complete this discharge. [id number]/CPS #: [id number]
--- NOTE | 2018-05-29 04:07 | PN ---
NEUROLOGY PROGRESS NOTE: DATE OF SERVICE: 05/26/18 PRIMARY PROVIDER: Dr. Campa. CHIEF COMPLAINT: Right neck pain. SUBJECTIVE: The patient slept well overnight. He did not require any narcotic therapy since last night. He is tolerating gabapentin 300 mg twice daily. He does not have any focal neurological deficits and the numbness on the left hand has resolved. He is wondering when he can go back to play golf. REVIEW OF SYSTEMS: Denied any headache, neck pain, visual disturbance, focal weakness, or paresthesias. Denied any chest pain, shortness of breath, or palpitation. MEDICATIONS: 1. Allopurinol 300 mg p.o. daily. 2. Aspirin 325 mg p.o. daily. 3. Enoxaparin 40 mg subcutaneously every 24 hours. 4. Gabapentin 300 mg p.o. twice daily. 5. Ondansetron 4 mg IV every 6 hours as needed. 6. Morphine 4 mg IV every 4 hours as needed. The last dose was at 2341 hours. 7. Oxycodone/acetaminophen 5/325 one tablet p.o. every 4 hours as needed. PHYSICAL EXAMINATION: Vitals: Temperature 98.0, pulse rate 66, respiratory rate 14, oxygen saturation of 96%, and blood pressure 104/58. General: Well- nourished, well-developed man, in no acute distress. HEENT: Head atraumatic, normocephalic. Eyes, conjunctivae/corneas were clear. Neck: Supple and symmetrical. No carotid bruit. Lungs: Clear to auscultation bilaterally. Extremities: Normal range of motion with no cyanosis. Psych: Affect is broad. Neurological Examination: Mental Status: Awake, alert, oriented to person, place, time, general circumstances. Normal to confrontation bilaterally. Pupils are mid range and reactive. Sensation is intact in the forehead, cheeks, and jaw region bilaterally. No facial droop. Able to hear throughout the history process. Tongue is symmetrical and midline with no atrophy. Motor: No focal motor deficits. With normal strength in upper and lower extremities. Reflexes 2+ throughout with 1+ at the ankles bilaterally. Sensation is intact to light touch and pinprick throughout. Coordination: Normal [id number] and rapid alternating movement. Gait narrow based. No ataxia. LABORATORY DATA: Imaging and other diagnostic testing, no new labs were obtained except for the vitamin B12 level of 333. Imaging studies, MRI of the brain without contrast was reviewed and there was no evidence of stroke. ASSESSMENT AND PLAN: Mr. Brandon Torres is a 52-year-old man with history of gout and alcohol dependency, who presented to the ED with symptoms of right neck pain that is acute onset with intermittent numbness in the left hand. This has since resolved. The patient was found to have a right vertebral artery dissection at V1, V2. We placed the patient on high dose aspirin 324 mg daily. I recommend repeating another CTA of head and neck in 3 months. We will follow up with the patient as outpatient. I discussed this case with Dr. Asael Ashraf from [facility] and no further intervention was recommended. Of note , the patient also has a history of factor V Leiden mutation with no evidence of heterozygous with no evidence of large vessel DVT. The patient would like to go home. I informed the patient that he should not be golfing or doing any strenuous activity until at least a repeat CTA is done within 3 months. 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 TIME SPENT: I spent a total of 25 minutes today and greater than 50% was spent directly reviewing the medical chart, examining the patient, continued education and counseling, and discussing the treatment plan as mentioned above. The patient agreed to follow up in 4 to 6 weeks. [id number]/CPS #: [id number] MTDD
== END 2018-05-26 12:05 | disposition home or self-care (01) ==
LOC: ED 08:14 → MEDTELE 12:24
PROVIDERS: ADMIT Hospitalist; ATTEND Internal Medicine
DX: I77.74 Dissection of vertebral artery (principal); Z85.818 Personal history of malignant neoplasm of other sites of lip, oral cavity, and pharynx; G62.9 Polyneuropathy, unspecified; M54.2 Cervicalgia; M10.9 Gout, unspecified; E03.9 Hypothyroidism, unspecified; Z90.89 Acquired absence of other organs; Z79.82 Long term (current) use of aspirin; Z87.891 Personal history of nicotine dependence
CPT/HCPCS: 36415; 70450; 70496; 70498; 70551; 72125; 80053; 80061; 82607; 85025; 85610; 85730; 96374; 99283; A9270-GY; G0378; J1650; J2270; J2405; Q9967

== ENCOUNTER 2018-05-26 19:58 | Emergency (ER) | payer OTHER ==
[2018-05-26] MEDS ORDERED: Morphine VIAL* 4 MG/ML VIAL (1 ml vial) IV ONE (21:28)
--- NOTE | 2018-05-26 21:33 | ED ---
Neck Pain - HPI Summary HPI Summary: 52 year [facility] M [facility] accompanied by complains of neck pain since 1899 today while walking around at the [facility]. The patient rates the pain 5/10 in severity. Symptoms aggravated by nothing. Symptoms alleviated by nothing. reports that patient's face flushed red at the fair and patient reported feeling feverish. Patient additionally complains of head pain radiating from occiptal to frontal area of head. Patient was in the ED yesterday for the same symptoms, dx vertebral artery dissection. He was admitted to hospitalist and discharged today with Aspirin. - History of Current Complaint Chief Complaint: EDHeadache Stated Complaint: HEAD PAIN,ARM PAIN/INJURY Hx Obtained From: Patient, Family/Clam Shucker - Onset/Duration Of Injury/Symptoms: Hours - 1899 today Onset/Duration: Started hours ago - 1899 today, Still Present Severity Currently: Moderate Pain Intensity: 5 Pain Scale Used: 0-10 Numeric Aggravating Factors: Nothing Alleviating Factors: Nothing - Allergies/Home Medications Allergies/Adverse Reactions: Allergies Allergy/AdvReac Type Severity Reaction Status Date / Time No Known Allergies Allergy Verified 05/25/18 09:16 PMH/Surg Hx/FS Hx/Imm Hx Previously Healthy: No Endocrine/Hematology History: Reports: Hx Blood Disorders - + factor V Denies: Hx Diabetes Cardiovascular History: Reports: Other Cardiovascular Problems/Disorders - FACTOR V LIEDEN, HX OF SUPERFICIAL BLOOD CLOTS IN LEGS, PRIMARILY RIGHT- Denies: Hx Hypertension, Hx Pacemaker/ICD Respiratory History: Reports: Hx Sleep Apnea History: Reports: Hx Kidney Stones - LEFT Denies: Hx Renal Disease Musculoskeletal History: Reports: Hx Arthritis - BILATERAL SHOULDERS, Hx Tendonitis - RIGHT HAND, Other Musculoskeletal History - DDD Sensory History: Reports: Hx Contacts or Glasses - READING GLASSES Denies: Hx Cataracts, Hx Eye Injury, Hx Eye Prosthesis, Hx Glaucoma, Hx Legally Blind, Hx Macular Degeneration, Hx Vision Problem, Hx Deafness, Hx Hearing Aid, Hx Hearing Problem, Other Sensory Impairments Opthamlomology History: Reports: Hx Contacts or Glasses - READING GLASSES Denies: Hx Cataracts, Hx Eye Injury, Hx Eye Prosthesis, Hx Glaucoma, Hx Legally Blind, Hx Macular Degeneration, Hx Vision Problem, Other Sensory Impairments Neurological History: Reports: Hx Nerve Disease, Other Neuro Impairments/ Disorders - NEUROPATHY BILAT FEET Psychiatric History: Denies: Hx Panic Disorder, Hx Schizophrenia - Cancer History Cancer Type, Location and Year: MALIGNANT NEOPLASM TONSIL - Surgical History Surgery Procedure, Year, and Place: TONSILLECTOMY A CHILD. APPENDECTOMY A CHILD. 2011 ABDOMINAL HERNIA REPAIR WITH MESH, [facility]. 2012 ESWL LEFT KIDNEY STONE, [facility]. 10/2015 RIGHT KNEE ARTHROSCOPY WITH PARTIAL MEDIAL MENISECTOMY AND PLICA EXCISION, [facility] Hx Anesthesia Reactions: Yes - 2012-AGITATED WITH EXTUBATION - Immunization History Date of Tetanus Vaccine: Unknown Date of Influenza Vaccine: never Infectious Disease History: Yes Infectious Disease History: Reports: Hx Shingles - 2013 Denies: Hx Clostridium Difficile, Hx Hepatitis, Hx Human Immunodeficiency Virus (HIV), Hx of Known/Suspected MRSA, Hx Tuberculosis, History Other Infectious Disease, Traveled Outside the [place] in Last 30 Days - Family History Known Family History: Positive: Other - Cancer - Social History Alcohol Use: Occasionally Hx Substance Use: No Substance Use Type: Reports: None Hx Tobacco Use: Yes Smoking Status (MU): Former Smoker Type: Cigarettes Amount Used/How Often: 1-2 PPD, ON AND OFF FOR ABOUT 20 YEARS Length of Time of Smoking/Using Tobacco: 20 YEARS Have You Smoked in the Last Year: No Review of Systems Positive: Fever Positive: Other - neck pain, head pain radiating from occiptal to frontal area of head All Other Systems Reviewed And Are Negative: Yes Physical Exam - Summary Physical Exam Summary: Appearance: Well-appearing, Well-nourished, lying in bed comfortably Skin: Warm, dry, no obvious rash Eyes: sclera anicteric, no conjunctival pallor ENT: mucous membranes moist, pharynx appears normal Neck: Supple, nontender Respiratory: Clear to auscultation, no signs of respiratory distress Cardiovascular: Normal S1, S2. No murmurs. Normal distal pulses in tibial and radial bilaterally. Abdomen: Soft, nontender, normal active bowel sounds present Musculoskeletal: Normal, Strength/ROM Intact Neurological: A&Ox3, awake and alert, mentation is normal, speech is fluent and appropriate Psychiatric: affect is normal, does not appear anxious or depressed Triage Information Reviewed: Yes Vital Signs On Initial Exam: Initial Vitals Temp Pulse Resp BP Pulse Ox 100.2 F 92 18 148/87 98 05/26/18 20:02 05/26/18 20:02 05/26/18 20:02 05/26/18 20:02 05/26/18 20:02 Vital Signs Reviewed: Yes Diagnostics - Vital Signs Vital Signs Temp Pulse Resp BP Pulse Ox 05/26/18 20:02 100.2 F 92 18 148/87 98 - Laboratory Lab Statement: Any lab studies that have been ordered have been reviewed, and results considered in the medical decision making process. - Additional Comments Diagnostic Additional Comments: Head CTA, per radiologist, shows no acute findings. ED physician has reviewed this report. Neck Course/Dx - Diagnoses Provider Diagnoses: Dissecting hemorrhage of right vertebral artery - Physician Notifications Discussed Care Of Patient With: Silvina Hinds Time Discussed With Above Provider: 10:14 Instructed by Provider To: Other - Dr. Hinds, neurology, recommends that patient can be discharged if CTA is unchanged from yesterday. Discharge - Sign-Out/Discharge Documenting (check all that apply): Patient Departure - discharge - Discharge Plan Condition: Good Disposition: HOME Referrals: Silvina Hinds MD [Medical Doctor] - Additional Instructions: Make sure to avoid any chance of dehydration or vigorous activity. You have to let the artery heal. - Billing Disposition and Condition Condition: GOOD Disposition: Home - Attestation Statements Document Initiated by Scribe: Yes Documenting Scribe: Kimberly Casanova Provider For Whom Raúl is Documenting (Include Credential): Tolu Corrales MD Scribe Attestation: I, Kimberly Casanova, scribed for Tolu Corrales MD on 05/28/18 at 0123. Scribe Documentation Reviewed: Yes Provider Attestation: The documentation as recorded by the scribeKimberly accurately reflects the service I personally performed and the decisions made by me, Tolu Corrales MD
[2018-05-26] MEDS ORDERED: NS 0.9% 1000 ML* 2,000 ML IV ONE (22:12)
[2018-05-26] MEDS ORDERED: Iohexol 350* (CONTRAST) 500 ML MDV IV ONE (22:17)
[2018-05-26] MEDS ORDERED: Morphine VIAL* 10 MG/ML 1 ML VIAL IV ONE (23:00)
--- NOTE | 2018-05-27 00:09 | RAD ---
EXAM: CT Angiography Head With Intravenous Contrast CLINICAL HISTORY: 52 years old, male; Signs and symptoms; Headache; Prior surgery; Surgery type: Throat ca with radiation; Additional info: Recurrent neck/head pain, known recent vert dissect TECHNIQUE: Axial computed tomographic angiography images of the head with intravenous contrast using CT angiography protocol. All CT scans at this facility use at least one of these dose optimization techniques: automated exposure control; mA and/or kV adjustment per patient size (includes targeted exams where dose is matched to clinical indication); or iterative reconstruction. MIP reconstructed images were created and reviewed. CONTRAST: 80 mL of OMNIPAQUE 350 administered intravenously. COMPARISON: No relevant prior studies available. FINDINGS: Right internal carotid artery: No acute findings. Intracranial segment is patent with no significant stenosis. No aneurysm. Right anterior cerebral artery: Unremarkable. No occlusion or significant stenosis. No aneurysm. Right middle cerebral artery: Unremarkable. No occlusion or significant stenosis. No aneurysm. Right posterior cerebral artery: Unremarkable. No occlusion or significant stenosis. No aneurysm. Right vertebral artery: Unremarkable as visualized. Left internal carotid artery: Unremarkable. No acute findings. Intracranial segment is patent with no significant stenosis. No aneurysm. Left anterior cerebral artery: Unremarkable. No occlusion or significant stenosis. No aneurysm. Left middle cerebral artery: Unremarkable. No occlusion or significant stenosis. No aneurysm. Left posterior cerebral artery: Unremarkable. No occlusion or significant stenosis. No aneurysm. Left vertebral artery: Unremarkable as visualized. Basilar artery: Unremarkable. No occlusion or significant stenosis. No aneurysm. Dural sinuses/cerebral veins: CTV: No evidence of a venous thrombosis involving the superficial or deep cerebral veins. Brain: CT head: No area of abnormal enhancement within the brain parenchyma. The perfusion pattern within the brain is normal. IMPRESSION: No acute findings. EXAM: CT Angiography Neck With Intravenous Contrast CLINICAL HISTORY: 52 years old, male; Signs and symptoms; Headache; Prior surgery; Surgery type: Throat ca with radiation; Additional info: Recurrent neck/head pain, known recent vert dissect TECHNIQUE: Axial computed tomographic angiography images of the neck with intravenous contrast using CT angiography protocol. All CT scans at this facility use at least one of these dose optimization techniques: automated exposure control; mA and/or kV adjustment per patient size (includes targeted exams where dose is matched to clinical indication); or iterative reconstruction. MIP reconstructed images were created and reviewed. CONTRAST: 80 mL of OMNIPAQUE 350 administered intravenously. 80 mL of OMNIPAQUE 350 administered intravenously. COMPARISON: CTA HD/NK CTA HEAD/NECK 05/25/2018 10:25 AM FINDINGS: VASCULATURE: Right common carotid artery: Unremarkable. No significant stenosis. No dissection or occlusion. Right internal carotid artery: Unremarkable. Extracranial segment is patent with no significant stenosis. No dissection or occlusion. Right external carotid artery: Unremarkable. No occlusion. Right vertebral artery: Occlusion of the right vertebral artery from its origin to approximately the C2 vertebral body. The distal right vertebral artery is opacified probably from retrograde flow. The right vertebral artery is hypoplastic. Left common carotid artery: Unremarkable. No significant stenosis. No dissection or occlusion. Left internal carotid artery: Unremarkable. Extracranial segment is patent with no significant stenosis. No dissection or occlusion. Left external carotid artery: Unremarkable. No occlusion. Left vertebral artery: Unremarkable. No significant stenosis. No dissection or occlusion. NECK: Bones/joints: No acute fracture. No dislocation. Soft tissues: See below. Lymph nodes: Lymphatics: No adenopathy. Sinuses: Polypoid lesion located in the right maxillary sinus consistent with a retention cyst. Nasopharynx: Unremarkable. Oral cavity: Oral pharynx: Unremarkable. The appearance of the extrinsic tongue musculature is normal. Hypopharynx: Unremarkable. Larynx: Unremarkable. Trachea: Upper trachea: Unremarkable. Retropharyngeal space: Retropharyngeal spaces: Unremarkable. Thyroid: Thyroid gland: Unremarkable. Lung apices: Pulmonary apices: Normal. CAROTID STENOSIS REFERENCE USING NASCET CRITERIA: % ICA stenosis = (1 - narrowest ICA diameter/diameter of distal cervical ICA) x 100. Mild - <50% stenosis. Moderate - 50-69% stenosis. Severe - 70-94% stenosis. Near occlusion - 95-99% stenosis. Occluded - 100% stenosis. IMPRESSION: 1. Occlusion of the right vertebral artery from its origin to approximately C2. Probable retrograde flow filling the vertebral artery located at the skull base to approximately C2. 2. Patient has a left tonsillar pillar carcinoma. This is not clearly seen on the current CT study. No associated adenopathy.
[2018-05-27 01:28] VITALS: BP 120/70
== END 2018-05-27 01:26 | disposition home or self-care (01) ==
LOC: ED 19:58
DX: I65.09 Occlusion and stenosis of unspecified vertebral artery (principal); R50.9 Fever, unspecified
CPT/HCPCS: 70496; 70498; 96374; 99283; J2270; Q9967

== ENCOUNTER 2019-06-19 07:48 | Emergency (ER) | payer OTHER ==
--- NOTE | 2019-06-19 08:06 | ED ---
Neck Pain - HPI Summary HPI Summary: Pt is a 53 y/o M presenting to the ED with a chief complaint of R-sided neck pain initially onset between 1500 and 1600 yesterday afternoon, 06/18/19, while he was doing some dilip. He states its similar to when he had his vertebral arterial dissection last year, but it is more painful toward the front of the neck rather than the back of his neck. He reports inability to swallow this morning. He denies tingling, changes in vision, slurred speech, or weakness. Sx aggravated by lying down. Hx of throat cancer in remission d/t tx with radiation. Sees Dr. Hinds. Medications reviewed. Allergies noted. NKDA. - History of Current Complaint Chief Complaint: EDNeckComplaint Stated Complaint: NECK PAIN/POSS BLOOD CLOT PER PT Time Seen by Provider: 06/19/19 07:54 Hx Obtained From: Patient Mechanism Of Injury: No Known Trauma Timing: Constant, Lasting Hours Onset/Duration: Gradual Onset, Started hours ago, Still Present Severity Initially: Moderate Severity Currently: Moderate Pain Intensity: 6 Pain Scale Used: 0-10 Numeric Location: Discrete At: - R neck Aggravating Factors: Position - lying down Alleviating Factors: Nothing - Allergies/Home Medications Allergies/Adverse Reactions: Allergies Allergy/AdvReac Type Severity Reaction Status Date / Time No Known Allergies Allergy Verified 06/19/19 08:08 Home Medications: Home Medications Gabapentin CAP(*) [Neurontin 300 CAP(*)] 300 mg PO DAILY 06/19/19 [History Confirmed 06/19/19] PMH/Surg Hx/FS Hx/Imm Hx Previously Healthy: Yes Endocrine/Hematology History: Reports: Hx Blood Disorders - + factor V Denies: Hx Diabetes Cardiovascular History: Reports: Other Cardiovascular Problems/Disorders - FACTOR V LIEDEN, HX OF SUPERFICIAL BLOOD CLOTS IN LEGS, PRIMARILY RIGHT- Denies: Hx Hypertension, Hx Pacemaker/ICD Respiratory History: Reports: Hx Sleep Apnea History: Reports: Hx Kidney Stones - LEFT Denies: Hx Renal Disease Musculoskeletal History: Reports: Hx Arthritis - BILATERAL SHOULDERS, Hx Tendonitis - RIGHT HAND, Other Musculoskeletal History - DDD Sensory History: Reports: Hx Contacts or Glasses - READING GLASSES Denies: Hx Cataracts, Hx Eye Injury, Hx Eye Prosthesis, Hx Glaucoma, Hx Legally Blind, Hx Macular Degeneration, Hx Vision Problem, Hx Deafness, Hx Hearing Aid, Hx Hearing Problem, Other Sensory Impairments Opthamlomology History: Reports: Hx Contacts or Glasses - READING GLASSES Denies: Hx Cataracts, Hx Eye Injury, Hx Eye Prosthesis, Hx Glaucoma, Hx Legally Blind, Hx Macular Degeneration, Hx Vision Problem, Other Sensory Impairments Neurological History: Reports: Hx Nerve Disease, Other Neuro Impairments/ Disorders - NEUROPATHY BILAT FEET Psychiatric History: Denies: Hx Panic Disorder, Hx Schizophrenia - Cancer History Cancer Type, Location and Year: MALIGNANT NEOPLASM TONSIL - Surgical History Surgery Procedure, Year, and Place: TONSILLECTOMY A CHILD. APPENDECTOMY A CHILD. 2011 ABDOMINAL HERNIA REPAIR WITH MESH, [facility]. 2012 ESWL LEFT KIDNEY STONE, [facility] [place]. 10/2015 RIGHT KNEE ARTHROSCOPY WITH PARTIAL MEDIAL MENISECTOMY AND PLICA EXCISION, [facility] [place] Hx Anesthesia Reactions: Yes - 2012-AGITATED WITH EXTUBATION - Immunization History Date of Tetanus Vaccine: Unknown Date of Influenza Vaccine: never Infectious Disease History: No Infectious Disease History: Reports: Hx Shingles - 2013 Denies: Hx Clostridium Difficile, Hx Hepatitis, Hx Human Immunodeficiency Virus (HIV), Hx of Known/Suspected MRSA, Hx Tuberculosis, History Other Infectious Disease, Traveled Outside the [place] in Last 30 Days - Family History Known Family History: Positive: Other - Cancer - Social History Lives: With Family Alcohol Use: Occasionally Hx Substance Use: No Substance Use Type: Reports: None Hx Tobacco Use: Yes Smoking Status (MU): Former Smoker Type: Cigarettes Amount Used/How Often: 1-2 PPD, ON AND OFF FOR ABOUT 20 YEARS Length of Time of Smoking/Using Tobacco: 20 YEARS Have You Smoked in the Last Year: No Review of Systems Eyes: Negative Positive: Other - difficulty/inability swallowing, neck pain Negative: Weakness, Paresthesia, Slurred Speech All Other Systems Reviewed And Are Negative: Yes Physical Exam - Summary Physical Exam Summary: Constitutional: Well-developed, Well-nourished, Alert. (-) Distressed Skin: Warm, Dry HENT: Normocephalic; Atraumatic Eyes: Conjunctiva normal Neck: Musculoskeletal ROM normal neck. (-) JVD, (-) Stridor, (-) Tracheal deviation, no bruit over R neck Cardio: Rhythm regular, rate normal, Heart sounds normal; Intact distal pulses; The pedal pulses are 2+ and symmetric. Radial pulses are 2+ and symmetric. (-) Murmur Pulmonary/Chest wall: Effort normal. (-) Respiratory distress, (-) Wheezes, (-) Rales Abd: Soft. (-) Tenderness, (-) Distension, (-) Guarding, (-) Rebound Musculoskeletal: (-) Edema Lymph: (-) Cervical adenopathy Neuro: Alert, Oriented x3, Strength normal, Cranial nerves II-XII are grossly intact. (-) Dysmetria, (-) Nystagmus, (-) Ataxia by finger to nose testing, (-) Sensory deficit. NIH 0. Psych: Mood and affect Normal Triage Information Reviewed: Yes Vital Signs On Initial Exam: Initial Vitals Temp Pulse Resp BP Pulse Ox 98.3 F 66 18 143/97 97 06/19/19 07:49 06/19/19 07:49 06/19/19 07:49 06/19/19 07:49 06/19/19 07:49 Vital Signs Reviewed: Yes Diagnostics - Vital Signs Vital Signs Temp Pulse Resp BP Pulse Ox 06/19/19 07:49 98.3 F 66 18 143/97 97 - Laboratory Result Diagrams: 06/19/19 08:18 06/19/19 08:18 Lab Statement: Any lab studies that have been ordered have been reviewed, and results considered in the medical decision making process. - CT Head CTA CT Interpretation Completed By: Radiologist Summary of CT Findings: 1. AGAIN NOTED IS OCCLUSION OF THE RIGHT VERTEBRAL ARTERY WITH DISTAL RECONSTITUTION. THIS IS STABLE. 2. NO INTERNAL CAROTID ARTERY STENOSIS BY NASCET CRITERIA. 3. NO INTIMAL FLAP TO SUGGEST CAROTID DISSECTION. 4. NO ANEURYSM, VASCULAR MALFORMATION, OCCLUSION, OR STENOSIS OF THE VISUALIZED INTRACRANIAL CIRCULATION. ED physician has reviewed this report. National Institutes Of Health - NIH Scale Level of Consciousness: Alert/Keenly Responsive Ask Patient the Month and His/Her Age: Both Correct Ask Pt to Open/Close Eyes and Nursing Associate/Release Non-Paretic Hand: Both Correctly Best Gaze (Only Horizontal Eye Movement): Normal Visual Field Testing: No Visual Loss Facial Paresis-Pt to Smile & Close Eyes or Grimace Symmetry: Normal/Symmetrical Motor Function - Right Arm: No Drift-Holds 10 Seconds Motor Function - Left Arm: No Drift-Holds 10 Seconds Motor Function - Right Leg: No Drift-Holds 10 Seconds Motor Function - Left Leg: No Drift-Holds 10 Seconds Limb Ataxia-Must be out of Proportion to Weakness Present: Absent Sensory (Use Pinprick to Test Arms/Legs/Trunk/Face): Normal Best Language (Describe Picture, Name Items): No Aphasia Dysarthria (Read Several Words): Normal Extinction and Inattention: No Abnormality Total Score: 0 Neck Course/Dx - Course Course Of Treatment: Patient is here with atraumatic right neck pain that started yesterday while exerting himself. Patient is a history of right vertebral artery dissection and factor V Leiden. This was different than patient's typical pain as it was anterior not posterior. Patient had a repeat CTA which showed no new changes. Patient had no other emergent pathology. Patient was discharged with neurology follow-up. - Diagnoses Provider Diagnoses: Neck pain on right side, Dissection, vertebral artery Discharge ED - Sign-Out/Discharge Documenting (check all that apply): Patient Departure Patient Received Moderate/Deep Sedation with Procedure: No - Discharge Plan Condition: Stable Disposition: HOME Patient Education Materials: Neck Pain (ED) Referrals: Brandy Elizalde MD [Primary Care Provider] - Silvina Hinds MD [Medical Doctor] - Additional Instructions: Please follow up with Dr. Hinds within the next 1-3 days. Return to the emergency department with any new or worsening symptoms. - Billing Disposition and Condition Condition: STABLE Disposition: Home - Attestation Statements Document Initiated by Raúl: Yes Documenting Scribe: Annette Perez Provider For Whom Raúl is Documenting (Include Credential): Angelo Fonseca MD. Scribe Attestation: Annette Park scribed for Angelo Fonseca MD. on 06/19/19 at 0955. Scribe Documentation Reviewed: Yes Provider Attestation: The documentation as recorded by the Annette kemp accurately reflects the service I personally performed and the decisions made by , Angelo Fonseca MD. Status of Scribe Document: Viewed
[2019-06-19 08:27] LABS: ABS Eosinophils 0.2 10^3/ul (0-0.6); ABS Lymphocytes 0.5 10^3/ul (1.0-4.8); ABS Monocytes 0.5 10^3/ul (0-0.8); ABS Neutrophils 5.7 10^3/ul (1.5-7.7); Eosinophil % 2.5 %; Hematocrit 45 % (42-52); Hemoglobin 15.8 g/dL (14.0-18.0); Lymphocyte % 7.7 %; Mean Corpuscular HGB Conc 36 g/dL (31-36); Mean Corpuscular Hemoglobin 31 pg (27-31); Mean Corpuscular Volume 86 fL (80-94); Platelet Count 129 10^3/uL (150-450); Red Blood Count 5.17 10^6 /uL (4.18-5.48); Red Cell Distribution Width 14 % (10-15)
[2019-06-19 08:45] LABS: ALT 24 U/L (7-52); Albumin/Globulin Ratio 1.7 (1-3); Alkaline Phosphatase 60 U/L (34-104); BUN/Creatinine Ratio 14.1 (8-20); Blood Urea Nitrogen 14 mg/dL (6-24); CO2 Carbon Dioxide 26 mmol/L (22-32); Calcium 8.9 mg/dL (8.6-10.3); Chloride 105 mmol/L (101-111); EGFR African American 96.1 (>60); EGFR Non-African American 79.4 (>60); Globulin 2.3 g/dL (2-4); Glucose 105 mg/dL (70-100); Sodium 137 mmol/L (135-145); Total Protein 6.3 g/dL (6.4-8.9)
[2019-06-19] MEDS ORDERED: Iohexol 350* (CONTRAST) 500 ML MDV IV ONE (08:51)
[2019-06-19 09:34] LABS: Anion Gap 6 mmol/L (2-11)
[2019-06-19 09:41] VITALS: BP 118/77
== END 2019-06-19 09:59 | disposition home or self-care (01) ==
LOC: ED 07:48
DX: M54.2 Cervicalgia (principal); I77.74 Dissection of vertebral artery; Z85.89 Personal history of malignant neoplasm of other organs and systems; D68.51 Activated protein C resistance; Z87.891 Personal history of nicotine dependence
CPT/HCPCS: 36415; 70496; 70498; 80053; 85025; 99283; Q9967